=== PATIENT | female | born 1955 | race Two or more races ===

== ENCOUNTER 2021-12-07 07:54 | Day surgery (SDC) | payer OTHER, MEDICAID ==
[2021-12-04 15:09] LABS: Basophils # (auto) 0.1 10 ^3/uL (0-0.2); Lymphocytes # (auto) 1.9 10 ^3/uL (0.4-5.4); Monocytes # (auto) 0.5 10 ^3/uL (0-1.3); Neutrophils % (auto) 63.7 % (37.0-80.0)
[2021-12-04 15:11] LABS: Basophils % (auto) 1.3 % (0.0-2.0); Eosinophils # (auto) 0.2 10 ^3/uL (0-0.8); Eosinophils % (auto) 2.2 % (0.0-7.0); Hematocrit 29.8 % (36.0-46.0); Lymphocytes % (auto) 25.8 % (10.0-50.0); Mean Corpuscular Hemoglobin 19.4 pg (28.0-32.0); Mean Corpuscular Hgb Conc. 30.3 g/dL (32.0-36.0); Mean Corpuscular Volume 64.1 fL (80.0-100.0); Neutrophils # (auto) 4.6 10 ^3/uL (1.6-8.6); Nucleated Red Blood Cells % 0.1 %; Red Blood Cells 4.66 10^6/uL (4.0-5.20); Red Cell Distribution Width 18.8 % (11.8-14.3); White Blood Cell 7.2 10^3/uL (4.4-10.8)
[2021-12-04 15:17] LABS: Urine Bacteria MANY /hpf (None Seen); Urine Blood Negative /uL (Negative); Urine Mucus FEW (None Seen); Urine Specific Gravity 1.042 (1.001-1.035); Urine WBC 10 /hpf (0 - 5)
[2021-12-04 15:24] LABS: INR 1.02 (0.9-1.15); Partial Thromboplastin Time 23.3 sec (23.6-33.0)
[2021-12-04 15:41] LABS: Albumin 3.8 g/dL (3.4-5.0); Calcium 9.1 mg/dL (8.5-10.1); Potassium 3.2 mmol/L (3.5-5.1)
[2021-12-04 15:45] LABS: BUN/Creatinine Ratio 12.6; Bilirubin, Total 0.4 mg/dL (0.2-1.0); Total Protein 8.6 g/dL (6.4-8.2)
[~2021-12-07] VITALS: Ht 157.5 cm; Wt 67.6 kg
[~2021-12-07 07:54] MED LIST: CITA10TA8 PO; DICL1GEL72 EX; FER325T PO; GABA100C9 PO; PANT40TA2 PO; POTA10TA51 PO; TRAM50TA2 PO
[2021-12-07] MEDS ORDERED: PROPOFOL 10 MG/ML 20 ML IV ONE (07:55)
[2021-12-07] MEDS ORDERED: CIPROFLOXACIN 400MG/200ML 200 ML IV ONE (09:26)
[2021-12-07] MEDS ORDERED: fentaNYL CITRATE 100 MCG/2 ML VL ONE (09:49)
[2021-12-07] MEDS ORDERED: MIDAZOLAM HCL 2MG/2ML 2ml VIAL (1mg/ml) ONE (09:50)
[2021-12-07] MEDS ORDERED: MEPERIDINE HCL (50 MG/ML) 1 ML VIAL ONE (09:51)
[2021-12-07] MEDS ORDERED: MEPERIDINE HCL (25 MG/ML) 1ML VIAL ONE (09:52)
[2021-12-07] MEDS ORDERED: diphenhdrAMINE HCL 50 MG/1 ML VL ONE (10:18)
[2021-12-07 12:50] VITALS: BP 122/69
== END 2021-12-07 12:50 | disposition home or self-care (01) ==
LOC: SUR 07:54
PROVIDERS: ATTEND Urology
DX: N39.3 Stress incontinence (female) (male) (principal); N36.42 Intrinsic sphincter deficiency (ISD); I10 Essential (primary) hypertension; F32.A Depression, unspecified; M19.90 Unspecified osteoarthritis, unspecified site; Z98.890 Other specified postprocedural states; Z79.899 Other long term (current) drug therapy; Z88.0 Allergy status to penicillin; Z20.822 Contact with and (suspected) exposure to COVID-19
CPT/HCPCS: 36415; 51715; 74018; 80053; 81001; 85025; 85610; 85730; J0744; J1200; J2175; J2250; J2704; J3010; L8606; U0003; 76000